=== PATIENT | female | born 1985 | race Caucasian/White ===

== ENCOUNTER 2016-06-15 05:41 | Inpatient (IN) | payer OTHER ==
[2016-06-15] MEDS ORDERED: LR 500 ML IV ONE (05:53)
[2016-06-15] MEDS ORDERED: CITRIC ACID/SODIUM CITRATE 30 ML UDCUP PO ONE (05:53)
[2016-06-15] MEDS ORDERED: ceFAZolin 2 GM/DEXTROSE 100 ML IV ONE (06:00)
[2016-06-15] MEDS ORDERED: LR 1,000 ML IV SCH (06:00)
[2016-06-15 06:19] LABS: % IMMATURE GRANULYOCYTES 0.9 % (0.0-1.1); ABSOLUTE IMMATURE GRANULOCYTES 0.08 10^3/uL (0.00-0.10); ADD DIFF? NO; ADD MORPH? NO; ADD SCAN? NO; ATYPICAL LYMPHOCYTE FLAG 10 (0-99); FRAGMENT RBC FLAG 0 (0-99); HEMOGLOBIN 13.1 g/dL (12.6-16.3); LEFT SHIFT FLG 0 (0-99); LIPEMIA HEMOLYSIS FLAG 90 (0-99); MEAN CELL HEMOGLOBIN 32.1 pg (27.9-34.1); MEAN CELL HEMOGLOBIN CONCENTR. 34.5 g/dL (32.4-36.7); MEAN CELL VOLUME 93.1 fL (81.5-99.8); MEAN PLATELET VOLUME 10.4 fL (8.7-11.7); PLATELET CLUMPS FLAG 0 (0-99); PLATELET COUNT 236 10^3/uL (150-400); RED BLOOD CELL COUNT 4.08 10^6/uL (4.18-5.33); RED CELL DISTRIBUTION WIDTH 14.1 % (11.5-15.2)
[2016-06-15] MEDS ORDERED: AMMONIA AROMATIC 1 EACH AMP IH ONE (06:29)
[2016-06-15] MEDS ORDERED: LIDOCAINE 1% 30 ML SDV ONE (06:29)
[2016-06-15] MEDS ORDERED: TERBUTALINE SULFATE 1 MG/ML VIAL ONE (06:29)
[2016-06-15] MEDS ORDERED: OXYTOCIN 10 UNIT/ML VIAL ONE (06:30)
[2016-06-15] MEDS ORDERED: MISOPROSTOL 200 MCG TAB ONE (06:30)
[2016-06-15] MEDS ORDERED: CEFAZOLIN 2 GM/DEXTROSE/100 ML BAG IV ONE (06:32)
[2016-06-15] MEDS ORDERED: fentaNYL 100 MCG/2 ML INJ ONE (07:13)
[2016-06-15] MEDS ORDERED: morphINE PF 5 MG/10 ML INJ ONE (07:14)
[2016-06-15] MEDS ORDERED: OXYTOCIN 100 UNITS/10 ML VIAL ONE ×2 (07:15→07:22)
[2016-06-15] MEDS ORDERED: PHENYLEPHRINE 10 MG/ML SDV ONE (07:15)
[2016-06-15] MEDS ORDERED: ONDANSETRON 4 MG/2 ML VIAL ONE (07:22)
[2016-06-15] MEDS ORDERED: PROMETHAZINE HCL 25 MG/ML INJ IVP PRN (07:32)
[2016-06-15] MEDS ORDERED: SIMETHICONE 80 MG TAB CHEW PO PRN (07:32)
--- NOTE | 2016-06-15 08:26 | OBPROC ---
- Delivery Pre-op Diagnoses: Breech presentation Post-op Diagnoses: Breech presentation Procedure: Primary Surgeon: Kathy Cifuentes Porcelain Turner: Michelle Lin Anesthesiologist: Nahum Aguilera Abnormal Psychology Teacher/DIGITAL PRODUCTION MANAGER: Conrad David Anesthesia: Spinal Complications: None IV Fluid (ml): 2,000 EBL: 800 - Troy Info A Delivery Date: 06/15/16 Sex of : Male Score (1 Min): 8 Score (5 Min): 9
--- NOTE | 2016-06-15 08:52 | POSTANESTH ---
Post Anesthetic Evaluation Cardiovascular Status: Normal, Stable Respiratory Status: Normal, Stable Level of Consciousness/Mental Status: Can Participate in Eval Pain Control: Adequate, Prn Tx Ordered Nausea/Vomiting Control: Adequate, Prn Tx Ordered Complications Possibly Related to Anesthesia: None Noted
[2016-06-15] MEDS ORDERED: HYDROCODONE/APAP 5/325 TAB PO PRN (08:53)
[2016-06-15] MEDS ORDERED: NALOXONE HCL 0.4 MG/ML INJ IVP PRN ×2 (08:53)
[2016-06-15] MEDS ORDERED: fentaNYL 100 MCG/2 ML INJ IVP PRN (08:53)
[2016-06-15] MEDS ORDERED: PHENYLEPHRINE HCL 100 MCG/ML SYR IVP PRN (08:53)
[2016-06-15] MEDS ORDERED: HYDROmorphONE/DILAUDID 1 MG/ML SYR IVP PRN (08:53)
[2016-06-15] MEDS ORDERED: ONDANSETRON 4 MG/2 ML VIAL IVP PRN ×2 (08:53)
[2016-06-15] MEDS ORDERED: MEPERIDINE 25 MG/ML SYR IVP PRN (08:53)
[2016-06-15] MEDS ORDERED: BUPIVACAINE/DEXTROSE 7.5MG SPINAL AMP SP ONE (09:03)
[2016-06-15] MEDS ORDERED: KETOROLAC 30 MG/1 ML SDV ONE (09:53)
[2016-06-15] MEDS: KETOROLAC 30 MG/1 ML SDV IVP SCH ×3 (10:00→21:52)
--- NOTE | 2016-06-15 12:00 | GOP ---
[f rep st] OPERATIVE REPORT DATE OF OPERATION: 06/15/2016 SURGEON: Kathy Paredes MD CONSULTANT INTERNSHIP: Michelle Novak, certified nurse welt rander. ANESTHESIA: Spinal. PREOPERATIVE DIAGNOSIS: Intrauterine at 39 and 0/7 weeks gestation with breech presentation. POSTOPERATIVE DIAGNOSIS: Intrauterine at 39 and 0/7 weeks gestation with breech presentation. PROCEDURE PERFORMED: Primary low transverse section. FINDINGS: Viable male infant in kojo breech presentation. Normal uterus, fallopian tubes, ovaries. SPECIMENS: None. ESTIMATED BLOOD LOSS: 800 mL. INDICATIONS: Fatmata is a 31-year-old, G1, P0 female who was noted to have a fetus in breech presentation. Declined external cephalic version. Desired delivery. DESCRIPTION OF PROCEDURE: The patient was taken to the operating room. She was prepped and draped in normal sterile fashion in the dorsal supine position with a leftward tilt. The patient received 2 g of Ancef preoperatively. A surgical timeout was performed verifying the patient's name, date of , planned procedure and site. A Pfannenstiel skin incision was made with a scalpel and carried through to the underlying fascia. The fascia was incised in the midline and extended laterally with the Cool scissors. The superior aspect of the fascia was grasped with the Cori clamps, the rectus muscles dissected off bluntly and with the Bovie cautery. The inferior aspect of the fascia was grasped with Cori clamps, the rectus muscles dissected off bluntly and with the Bovie cautery. The peritoneum was identified and entered in bluntly. The peritoneum was divided. The bladder blade was placed. The vesicouterine peritoneum was incised with the Metzenbaum scissors, and a bladder flap was created digitally. The bladder blade was replaced. The uterus was incised and extended laterally with the bandage scissors. The was delivered. The cord was clamped and cut. The was handed to the nurse practitioner. The placenta was delivered spontaneously. The uterus was exteriorized and cleared of all clots and debris. The uterine incision was reapproximated with 0 Monocryl in a running, locked fashion in 2 layers. The uterus was returned to the abdomen. The gutters were cleared of all clots and debris. The uterine incision was reinspected and noted to be hemostatic. The subfascial spaces were inspected and noted to be hemostatic. The fascia was reapproximated with 0 Vicryl in a running fashion. The subcutaneous tissue was irrigated and closed with 3-0 Vicryl, and the skin was closed with 4-0 Monocryl. All counts were correct x2. The patient was stable to recovery room. COMPLICATIONS: None. OUTCOME: Stable to recovery room. /[id number]/MODL MTDD
[2016-06-15] MEDS: DOCUSATE SODIUM 100 MG CAP PO PRN (20:29)
[2016-06-15] MEDS: HYDROCODONE/APAP 5/325 TAB PO PRN (20:29)
[2016-06-16] MEDS: HYDROCODONE/APAP 5/325 TAB PO PRN ×6 (00:21→20:19)
[2016-06-16] MEDS: KETOROLAC 30 MG/1 ML SDV IVP SCH (04:10)
[2016-06-16] MEDS: DOCUSATE SODIUM 100 MG CAP PO PRN (08:29)
--- NOTE | 2016-06-16 08:31 | SOAPPROG ---
SOAP Progress Note Assessment/Plan: Assessment: POD #1 s/p primary low transverse section Stable afebrile Plan: Continue routine post care 06/16/16 08:25 06/16/16 08:26 Subjective: Tolerating diet and voided today. Patient breast feeding with mild incisional pain. Ambulating well Objective: Vital Signs Temp Pulse Resp BP Pulse Ox 36.1 C 68 18 125/82 H 94 06/16/16 04:15 06/16/16 06:00 06/16/16 06:00 06/16/16 04:15 06/16/16 06:00 Laboratory Results 06/16/16 06:05 06/15/16 06/16/16 06/17/16 05:59 05:59 05:59 Intake Total 2850 Output Total 2950 Balance -100 - Pending Discharge Pending Discharge Within 48 Hours: Yes Pending Discharge Date: 06/18/16 Pending Discharge Time: 11:00 Physical Exam - Physical Exam General Appearance: WD/WN, alert, no apparent distress Respiratory: chest non-tender, lungs clear, normal breath sounds Cardiac/Chest: normal peripheral pulses, regular rate, rhythm Peripheral Pulses: 2+: carotid (R), carotid (L), femoral (R), femoral (L), dorsalis-pedis (R), dorsalis-pedis (L) Abdomen: normal bowel sounds, non-tender, soft, other (Dressing clean and dry Fundus firm 2 cm below umbilicus) Pelvic Exam: deferred Rectal: deferred Back: Normal inspection Skin: normal color, warm/dry Extremities: normal range of motion, non-tender, normal inspection, normal capillary refill Neuro/Psych: no motor/sensory deficits, alert, normal mood/affect, oriented x 3 ICD10 Worksheet Patient Problems: Problems Problem Status Diagnosed delivery delivered Acute
[2016-06-16 09:40] VITALS: RESP 16
[2016-06-16] MEDS: IBUPROFEN 600 MG TAB PO PRN ×3 (10:26→22:36)
[2016-06-17] MEDS: HYDROCODONE/APAP 5/325 TAB PO PRN ×6 (02:05→22:05)
[2016-06-17] MEDS: IBUPROFEN 600 MG TAB PO PRN ×3 (06:03→18:07)
--- NOTE | 2016-06-17 08:20 | SOAPPROG ---
SOAP Progress Note Assessment/Plan: Assessment: POD #2s/p primary low transverse section Stable afebrile Ambulating Tolerating diet Breast feeding Voiding and Flatus Plan: Continue routine post care Possible discharge tomorrow. 06/16/16 08:25 06/16/16 08:26 06/17/16 08:20 Subjective: Ambulating Tolerating diet Voiding and Objective: Vital Signs Temp Pulse Resp BP Pulse Ox 35.8 C L 75 16 138/86 H 96 06/16/16 19:17 06/16/16 19:17 06/16/16 19:17 06/16/16 19:17 06/16/16 19:17 Laboratory Results 06/16/16 06:05 06/16/16 06/17/16 06/18/16 05:59 05:59 05:59 Intake Total 2850 Output Total 2950 1950 Balance -100 -1950 - Pending Discharge Pending Discharge Within 48 Hours: Yes Pending Discharge Date: 06/19/16 Pending Discharge Time: 11:00 Physical Exam - Physical Exam General Appearance: WD/WN, alert, no apparent distress Respiratory: chest non-tender, lungs clear, normal breath sounds Cardiac/Chest: normal peripheral pulses, regular rate, rhythm Peripheral Pulses: 2+: carotid (R), carotid (L), femoral (R), femoral (L), dorsalis-pedis (R), dorsalis-pedis (L) Abdomen: normal bowel sounds, non-tender, soft, other (Fundus firm 3cm below umbilicus) Pelvic Exam: deferred Rectal: deferred Skin: normal color Extremities: normal range of motion ICD10 Worksheet Patient Problems: Problems Problem Status Diagnosed delivery delivered Acute Routine follow-up Acute - ICD10 Problem Qualifiers (1) Routine follow-up
[2016-06-17] MEDS: DOCUSATE SODIUM 100 MG CAP PO PRN ×2 (10:08→20:15)
[2016-06-17] MEDS ORDERED: BISACODYL 10 MG SUPP PR PRN (19:57)
[2016-06-17] MEDS ORDERED: LACTULOSE 20 GM/30 ML UDCUP PO PRN (19:57)
[2016-06-17] MEDS ORDERED: MAGNESIUM HYDROXIDE 30 ML UDCUP PO PRN (19:57)
[2016-06-17] MEDS ORDERED: POLYETHYLENE GLYCOL 3350 17 GM PKT PO PRN (19:57)
[2016-06-17] MEDS ORDERED: SENNOSIDES/DOCUSATE SODIUM TAB PO SCH (21:00)
[2016-06-17] MEDS ORDERED: MAGNESIUM OXIDE 400 MG TAB PO SCH (22:00)
[2016-06-17 22:41] LABS: ALANINE AMINOTRANSFERASE 35 IU/L (9-52); ASPARTATE AMINOTRANSFERASE 29 IU/L (14-46); BILIRUBIN,TOTAL 0.5 mg/dL (0.1-1.4); BILIRUBIN-CONJUGATED 0.1 mg/dL (0.0-0.5); BILIRUBIN-UNCONJUGATED 0.4 mg/dL (0.0-1.1); CREATININE 0.6 mg/dL (0.6-1.0); GLOMERULAR FILTRATION RATE > 60; LACTATE DEHYDROGENASE 551 IU/L (313-618); URIC ACID 4.1 mg/dL (2.5-6.8)
[2016-06-17 22:50] LABS: % IMMATURE GRANULYOCYTES 0.7 % (0.0-1.1); ABSOLUTE IMMATURE GRANULOCYTES 0.05 10^3/uL (0.00-0.10); ADD DIFF? NO; ADD MORPH? NO; ADD SCAN? NO; ATYPICAL LYMPHOCYTE FLAG 30 (0-99); FRAGMENT RBC FLAG 0 (0-99); HEMATOCRIT 35.5 % (38.0-47.0); HEMOGLOBIN 11.9 g/dL (12.6-16.3); LEFT SHIFT FLG 0 (0-99); LIPEMIA HEMOLYSIS FLAG 80 (0-99); MEAN CELL HEMOGLOBIN 32.3 pg (27.9-34.1); MEAN CELL HEMOGLOBIN CONCENTR. 33.5 g/dL (32.4-36.7); MEAN CELL VOLUME 96.5 fL (81.5-99.8); MEAN PLATELET VOLUME 10.2 fL (8.7-11.7); PLATELET CLUMPS FLAG 10 (0-99); PLATELET COUNT 232 10^3/uL (150-400); RED BLOOD CELL COUNT 3.68 10^6/uL (4.18-5.33); RED CELL DISTRIBUTION WIDTH 14.3 % (11.5-15.2)
[2016-06-18] MEDS: IBUPROFEN 600 MG TAB PO PRN ×2 (00:02→06:20)
[2016-06-18] MEDS: HYDROCODONE/APAP 5/325 TAB PO PRN ×3 (02:03→10:55)
[2016-06-18 08:23] VITALS: BP 132/84; PULSE 60; TEMP 98.4; O2SAT 99
--- NOTE | 2016-06-18 08:37 | SOAPPROG ---
SOAP Progress Note Assessment/Plan: Assessment: POD#3 s/p pLTCS for breech presentation at 39w0d Meeting post-operative milestones Rh pos, Rub imm Plan: Discharge home today Reviewed standard precautions RTC in 2 weeks for incision check 06/18/16 08:35 06/18/16 08:37 Subjective: is getting better, waiting for APNO cream today. Pain controlled with Motrin and [place]. Ambulating, tolerating regular diet, passing flatus, no BM yet but had bowel regimen last night. No chest pain or shortness of breath. Objective: Vital Signs Temp Pulse Resp BP Pulse Ox 36.9 C 60 16 132/84 H 99 06/18/16 08:00 06/18/16 08:00 06/18/16 08:00 06/18/16 08:00 06/18/16 08:00 Laboratory Results 06/17/16 22:10 06/17/16 22:10 06/17/16 06/18/16 06/19/16 05:59 05:59 05:59 Output Total 1950 Balance -1950 Gen: NAD Breasts: soft Resp: CTAB CV: RRR Abd: soft, moderately distended, appropriately tender Incision: c/d/i with steri-strips Ext: minimal edema - Pending Discharge Pending Discharge Within 24 Hours: Yes Pending Discharge Date: 06/19/16 Pending Discharge Time: 11:00 ICD10 Worksheet Patient Problems: Problems Problem Status Diagnosed delivery delivered Acute Routine follow-up Acute
== END 2016-06-18 12:30 | disposition home or self-care (01) | DRG 766 ==
LOC: FLD 05:41 → FOB 10:50
PROVIDERS: ADMIT Obstetrics & Gynecology; ATTEND Obstetrics & Gynecology
PROC: 10D00Z1 Extraction of Products of Conception, Low, Open Approach (ICD-10-PCS; principal; 2016-06-15)
DX: O32.1XX0 Maternal care for breech presentation, not applicable or unspecified (principal); Z37.0 Single live birth; Z3A.39 39 weeks gestation of pregnancy
CPT/HCPCS: J0690; J1885; J2274; J2370; J2405; J2590; J3010; J3105

== ENCOUNTER → 2016-07-02 | Outpatient (CLI) | payer OTHER | LOC: FLACT 09:33 | PROVIDERS: ATTEND Obstetrics & Gynecology | DX: Z39.0 Encounter for care and examination of mother immediately after delivery (principal); O92.13 Cracked nipple associated with lactation | CPT/HCPCS: G0463 ==

== ENCOUNTER → 2018-09-10 | Outpatient (CLI) | payer OTHER | LOC: FLACT 13:57 ==